=== PATIENT | female | born 1970 | race African-American/Black ===

== ENCOUNTER 2020-06-02 00:28 | Emergency (ER) | payer SELFPAY ==
[~2020-06-02] VITALS: Ht 160 cm; Wt 92.1 kg
[2020-06-02 00:38] VITALS: Ht 160 cm; Wt 92.1 kg
[2020-06-02 01:53] VITALS: BP 131/84
== END 2020-06-02 01:45 | disposition left against medical advice (07) ==
LOC: ED 00:28
DX: D25.9 Leiomyoma of uterus, unspecified (principal); N94.6 Dysmenorrhea, unspecified
CPT/HCPCS: J1885

== ENCOUNTER 2020-06-05 18:58 | Inpatient (IN) | payer SELFPAY ==
[~2020-06-05] VITALS: Ht 165.1 cm; Wt 92.6 kg
[2020-06-05 19:17] VITALS: Ht 165.1 cm; Wt 92.6 kg
[2020-06-05 20:05] LABS: CALCIUM 8.9 mg/dL (8.5-10.1); CARBON DIOXIDE 28.3 mmol/L (21-32); CHLORIDE SERUM 99 mmol/L (98-107); CREATININE SERUM 0.8 mg/dL (0.6-1.0); GFR1 > 60 mL/min; GLUCOSE SERUM 100 mg/dL (74-106); POTASSIUM SERUM 3.4 mmol/L (3.5-5.1); SODIUM SERUM 134 mmol/L (136-145)
[2020-06-05 20:08] LABS: UA SPECIFIC GRAVITY >=1.030 (1.005-1.035); microscopic required? YES; urine erythrocyte 3+ (NEGATIVE)
[2020-06-05 20:10] LABS: ALKALINE PHOSPHATASE 85 U/L (46-116); ALT/SGPT 13 U/L (14-59); AST/SGOT 20 U/L (15-37); BILIRUBIN TOTAL 0.3 mg/dL (0.20-1.00)
[2020-06-05 20:12] LABS: ALBUMIN 2.9 g/dL (3.4-5.0); TOTAL PROTEIN, SERUM 8.3 g/dL (6.4-8.2)
[2020-06-05 20:25] LABS: PLATELET COUNT 412 x10^3mcL (130-400); RED CELL DISTRIBUTION WIDTH 23.2 % (11.5-14.5)
[2020-06-05 20:52] LABS: BAND NEUTROPHIL 1 % (0-10); BASOPHIL 0 % (0-2); MONOCYTE 7 % (0-7); SEGMENTED NEUTROPHILS 80 % (37-75)
[2020-06-05 20:53] LABS: rbc morphology (normal/abnorm) ABNORMAL (NORMAL)
[2020-06-06 00:47] LABS: RED BLOOD CELLS 4.24 M/mm3 (4.10-5.10)
[2020-06-06 01:01] LABS: TOTAL IRON BINDING CAPACITY 376 ug/dL (250-450)
[2020-06-06 01:05] LABS: IRON 11 ug/dL (50-170)
[2020-06-06 01:05] LABS: CHOLESTEROL/HDL RATIO 5.3
[2020-06-06 01:09] LABS: FREE T4 1.36 ng/dL (0.76-1.46); FREE THYROXINE INDEX 2.9 ug/dL (1.4-4.5); T4(THYROXINE) 8.4 ug/dL (4.7-13.3)
[2020-06-06 01:59] LABS: T3 TOTAL 0.76 ng/mL
[2020-06-06 02:08] VITALS: BP 153/80
[2020-06-06 04:45] VITALS: BP 161/76
[2020-06-06 06:13] VITALS: BP 178/84
== END 2020-06-06 08:18 | disposition home or self-care (01) | DRG 871 ==
LOC: ED 18:58 → MU 23:12 → DU 06-06 02:00
PROVIDERS: Emergency Medicine; ADMIT Student in an Organized Health Care Education/Training Program; ATTEND Student in an Organized Health Care Education/Training Program
PROC: 30233N1 Transfusion of Nonautologous Red Blood Cells into Peripheral Vein, Percutaneous Approach (ICD-10-PCS; principal; 2020-06-06)
DX: A41.9 Sepsis, unspecified organism (principal); J18.9 Pneumonia, unspecified organism; E43 Unspecified severe protein-calorie malnutrition; Z20.828 Contact with and (suspected) exposure to other viral communicable diseases; D64.9 Anemia, unspecified; D25.9 Leiomyoma of uterus, unspecified; Z68.32 Body mass index [BMI] 32.0-32.9, adult
CPT/HCPCS: 84439; G0378; J0696; J1885; J7030; J7040; J7050; P9016; Q0092; Q9967